=== PATIENT | male | born 2005 | race Caucasian/White ===

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

== ENCOUNTER 2023-02-27 23:04 | Emergency (ER) | payer OTHER ==
[2023-02-27 23:25] VITALS: BP 122/75; PULSE 96; RESP 20; TEMP 97.9; BMI 25.1
[2023-02-27] MEDS ORDERED: DIPHTH,PERTUSS(ACELL),TET 0.5 ML DISP.SYRIN IM ONE (23:35)
[2023-02-27] MEDS ORDERED: CIPROFLOXACIN 500 MG TABLET (RESTRICTED TO ID) PO ONE (23:42)
[2023-02-28] MEDS ORDERED: DIPHTH,PERTUSS(ACELL),TET 0.5 ML DISP.SYRIN IM ONE
[2023-02-28] MEDS ORDERED: BACITRACIN ZINC 15 GM TUBE TOPICAL OINTMENT ONE (00:44)
== END 2023-02-28 00:59 | disposition home or self-care (01) ==
LOC: JER 23:04
PROC: 3E0234Z Introduction of Serum, Toxoid and Vaccine into Muscle, Percutaneous Approach (ICD-10-PCS; principal; 2023-02-28)
DX: S91.331A Puncture wound without foreign body, right foot, initial encounter (principal); W45.0XXA Nail entering through skin, initial encounter; Y92.69 Other specified industrial and construction area as the place of occurrence of the external cause; Y99.0 Civilian activity done for income or pay
CPT/HCPCS: 73630-TC-RT-FY; 90471; 90715; 99283-25

== ENCOUNTER 2023-08-06 22:34 | Emergency (ER) | payer OTHER ==
[2023-08-06 22:38] VITALS: BP 115/61; PULSE 85; RESP 18; TEMP 97.5; BMI 22.8
== END 2023-08-07 01:16 | disposition home or self-care (01) ==
LOC: JER 22:34
PROC: 0H9FXZZ Drainage of Right Hand Skin, External Approach (ICD-10-PCS; principal; 2023-08-06)
DX: S60.131A Contusion of right middle finger with damage to nail, initial encounter (principal); M79.644 Pain in right finger(s); W22.8XXA Striking against or struck by other objects, initial encounter
CPT/HCPCS: 73140-TC-RT-FY; 99283-25